=== PATIENT | female | born 1955 | race Caucasian/White ===

== ENCOUNTER 2018-05-06 16:45 | Emergency (ER) | payer OTHER ==
[2018-05-06] MEDS: KETOROLAC 15 MG INJ IM (19:42)
== END 2018-05-06 21:42 | disposition home or self-care (01) ==
LOC: FTE 16:45
DX: S79.911A Unspecified injury of right hip, initial encounter (principal); W01.0XXA Fall on same level from slipping, tripping and stumbling without subsequent striking against object, initial encounter; Y92.9 Unspecified place or not applicable
CPT/HCPCS: 73510; 96372; 99284-25